=== PATIENT | male | born 1975 | race Hispanic/Latino ===

== ENCOUNTER 2023-10-26 13:56 | Emergency (ER) | payer MEDICAID, SELFPAY ==
--- NOTE | ~2023-10-26 | XR_ITS ---
EXAM: XR knee RT min 4V DATE: 10/26/2023 15:05 HISTORY: CONTINUED PAIN ALL OVER X 1 MONTH . COMPARISON: None available. FINDINGS: Normal mineralization. No fracture or dislocation. No lytic or blastic lesion. Mild tricom partmental osteoarthritis. No erosion or periosteal change. Soft tissues within normal limits. IMPRESSION: No acute osseous finding in the right knee. Reviewed, dictated and finalized at location K. [employer]
[2023-10-26 14:26] VITALS: BP 115/75; PULSE 98; RESP 16; TEMP 36.6; O2SAT 100
--- NOTE | 2023-10-26 14:33 | ED.LOWEXIN ---
HPI - Extremity Injury (Lower) General Chief Complaint: Extremity Injury, Lower Stated Complaint: right knee pain Time Seen by Provider: 10/26/23 14:45 Source: patient and RN notes reviewed Mode of arrival: ambulatory Limitations: language barrier (Arabic-speaking, cnc lathe programmer used) History of Present Illness HPI Narrative: 48-year-old male presents concern for right knee pain without injury. Reports 1 month history of pain. Reports he is diabetic and does take his medications currently. He reports his leg hurts when skin touch is his pants. He denies redness, swelling, warmth, bruising, open skin, fever. He used a topical remedies for his pain without relief. Reports pain is worse at the end of the day. Reports pain is worse with weight-bearing MD complaint: other (knee pain) Related Data Home Medications Medication Instructions Recorded Confirmed canagliflozin 300 mg tablet 300 mg PO DAILY 10/26/23 10/26/23 (Invokana) metformin 1,000 mg tablet 1,000 mg PO BID 10/26/23 10/26/23 simvastatin 20 mg tablet 20 mg PO DAILY 10/26/23 10/26/23 Allergies Allergy/AdvReac Type Severity Reaction Status Date / Time No Known Allergies Allergy Verified 10/26/23 14:50 Review of Systems Review of Systems: CONSTITUTIONAL: Denies malaise, chills, sweats, or fever. SKIN: Denies rash or itching, open skin, laceration, abrasion, redness, warmth, swelling. MUSCULOSKELETAL: Reports right knee pain NEUROLOGIC: Denies numbness, weakness All systems reviewed & are unremarkable except as noted in HPI and below PMFSH Comments At time of signature, agree with nursing past medical, surgical, social and family history. There is no relevant family history pertinent to the presenting complaint Exam Narrative: GENERAL: Well-appearing, well-nourished, and in no acute distress. HEAD: Normocephalic, atraumatic. EYES: PERRLA, conjunctivae clear NECK: Supple. CHEST: Speaks in full sentences. No respiratory distress. HEART: Regular rate and rhythm. Normal and equal peripheral pulses. EXTREMITIES: Right has normal strength and sensation, normal range of motion. No edema or ecchymosis. 5/5 strength with the flexion and extension. Normal sensation with sensitivity to light touch and pain. No point tenderness. No open wounds, no skin tenting, no devitalized tissue or atrophy, no trophic changes, no obvious deformity, alignment normal, nearby joints and structures intact. Distal pulses palpable and equal bilaterally, skin warm, dry, pink. Capillary refill less than 3 seconds. SKIN: Warm, dry, no rash. NEURO: Alert and oriented x3. PSYCH: Normal mood and affect Course Course Emergency Course: Patient is aware of diagnosis, understands and agrees to treatment plan. Anticipatory guidance given. Patient agrees to follow-up as directed and is aware of reasons to seek care at the emergency department. Portions of this record may have been created with voice recognition software Level of Care: Express Care Visit Vital Signs Vital signs: Vital Signs Temperature 97.9 F 10/26/23 14:26 Pulse Rate 98 10/26/23 14:26 Respiratory Rate 16 10/26/23 14:26 Blood Pressure 115/75 10/26/23 14:26 Pulse Oximetry 100 10/26/23 14:26 Oxygen Delivery Room Air 10/26/23 14:26 Temperature 97.9 F 10/26/23 14:26 Pulse Rate 98 10/26/23 14:26 Respiratory Rate 16 10/26/23 14:26 Blood Pressure 115/75 10/26/23 14:26 Pulse Oximetry 100 10/26/23 14:26 Oxygen Delivery Room Air 10/26/23 14:26 Reviewed. MDM - Extremity Injury (Lower) MDM Narrative Medical decision making narrative: Patients injury and pain is consistent with musculoskeletal etiology. No signs of neurological or vascular compromise on exam. Compartments and tissues are soft without signs of compartment syndrome. Pain is felt appropriate for further evaluation on an outpatient basis. Imaging Data My impression: Images reviewed, interpreted by radiologist
== END 2023-10-26 15:37 | disposition home or self-care (01) ==
PROVIDERS: Emergency Provider Nurse Practitioner; PCP Physician Assistant
DX: M17.11 Unilateral primary osteoarthritis, right knee (principal); E78.00 Pure hypercholesterolemia, unspecified; E11.9 Type 2 diabetes mellitus without complications; Z79.84 Long term (current) use of oral hypoglycemic drugs
CPT/HCPCS: 73564; 99203; G0463